=== PATIENT | female | born 1950 | race Caucasian/White ===

== ENCOUNTER 2017-10-15 18:08 | Emergency (ER) | payer BC ==
[~2017-10-15] VITALS: Ht 162.6 cm; Wt 65.8 kg
== END 2017-10-15 20:21 | disposition home or self-care (01) ==
LOC: ER 18:08
DX: S93.491A Sprain of other ligament of right ankle, initial encounter (principal); X50.0XXA Overexertion from strenuous movement or load, initial encounter; Y93.01 Activity, walking, marching and hiking; Y92.488 Other paved roadways as the place of occurrence of the external cause; Y99.8 Other external cause status